=== PATIENT | male | born 1965 | race Caucasian/White ===

== ENCOUNTER 2020-01-18 13:24 | Emergency (ER) | payer BC, OTHER ==
[2020-01-18] MEDS ORDERED: Bacitracin/Neomycin/Polymyxin B Oint 0.9 GM U/D Packet TOP ONE (13:33)
[2020-01-18] MEDS ORDERED: Diphtheria,Pertussis(Acell),Tetanus Vaccine 0.5 ML SDV IM ONE (13:33)
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
== END 2020-01-18 14:40 | disposition home or self-care (01) ==
LOC: LL.ED 13:24
DX: S62.631B Displaced fracture of distal phalanx of left index finger, initial encounter for open fracture (principal); Z87.891 Personal history of nicotine dependence; Z23 Encounter for immunization; W23.0XXA Caught, crushed, jammed, or pinched between moving objects, initial encounter
CPT/HCPCS: 12001; 73140-F1; 90471; 90715; 99283-25; J2001